=== PATIENT | female | born 1970 | race Two or more races ===

== ENCOUNTER 2020-06-05 21:33 | Emergency (ER) | payer MEDICAID ==
[~2020-06-05] VITALS: Ht 162.6 cm; Wt 68.2 kg
[2020-06-05] MEDS ORDERED: METOCLOPRAMIDE 5 MG/ML, 2ML IVPush ONE (22:00)
[2020-06-05] MEDS ORDERED: SODIUM CHLORIDE 0.9% 1,000ML IVBOLUS ONE (22:00)
--- NOTE | 2020-06-05 22:00 | NUR ---
patient bib remsa for lower abdominal pain. 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 patient states "i havent left my tub for days because I cant stop throwing up". patient in position in bed, restless, crying. tachycardic and hypertensive on monitors. she has been unable to take her medication due to the vomiting. IV in place on arrival. Dr. Dan at bedside for assessment. Call anna in place. patient in hospital gown. attached to VS monitoring equipment. side rails up for safety
[2020-06-05] MEDS ORDERED: METOCLOPRAMIDE 5 MG/ML, 2ML ONE (22:05)
[2020-06-05 22:29] LABS: BASOPHILS % (AUTO) 0 % (0-1); EOSINOPHILS % (AUTO) 0 % (1-7); LYMPHOCYTES % (AUTO) 8 % (22-44); MEAN CORPUSCULAR HEMOGLOBIN 34.8 pg (27.0-34.8); MEAN CORPUSCULAR HGB CONC 34.6 g/dL (32.4-35.8); MEAN PLATELET VOLUME 8.5 fL (7.4-10.4); MONOCYTES % (AUTO) 2 % (2-9); NEUTROPHILS % (AUTO) 89 % (42-75); PLATELET COUNT 311 x10^3/uL (130-400); RED BLOOD COUNT 4.54 x10^6/uL (3.82-5.3)
[2020-06-05 22:44] LABS: ALANINE AMINOTRANSFERASE 55 U/L (12-78); ALBUMIN 4.5 g/dL (3.4-5.0); ANION GAP 10 mmol/L (5-15); CALCIUM 9.3 mg/dL (8.5-10.1); CHLORIDE 108 mmol/L (98-107); CREATININE 1.04 mg/dL (0.55-1.02)
[2020-06-05 22:46] LABS: ALKALINE PHOSPHATASE 100 U/L (45-117); BILIRUBIN,TOTAL 1.4 mg/dL (0.2-1.0); TOTAL PROTEIN 8.2 g/dL (6.4-8.2)
--- NOTE | 2020-06-05 22:49 | NUR ---
patient reports feeling better. resting in position with side rails up for safety
[2020-06-05 23:08] LABS: MD SCAN
--- NOTE | 2020-06-05 23:21 | NUR ---
patient remains to have no n/v at this time. patient reports "im burping a lot". calm and no longer restless in bed. ivf almost complete. will continue to monitor. HR remains tachycardic at this time. call anna in reach
--- NOTE | 2020-06-06 00:03 | NUR ---
patient ambulated to bathroom. steady gait. ua obtained and sent to lab. Dr. long approved ice chips for patient and these were provided. call anna in reach. safety maintained. patient reports pain is now a dull ache and better. denies nausea
[2020-06-06 00:06] LABS: HCG UR SG 1.015 (1.003-1.030); MICROSCOPIC NOT IND
[2020-06-06] MEDS ORDERED: SODIUM CHLORIDE 0.9% 1,000ML IVBOLUS ONE (00:30)
--- NOTE | 2020-06-06 00:47 | NUR ---
TASK RN: PT RESTING IN [facility], IVF CONTINUE TO INFUSE. DENIES NEEDS. POC IS DC S/P IVF.
--- NOTE | 2020-06-06 01:27 | NUR ---
discharge instructions reviewed with patient. no further questions. IV removed per dc protocol. steady gait to lobby. all personal belongings with patient on departure. denies n/v/d on discharge.
[2020-06-06 01:29] VITALS: BP 162/85
== END 2020-06-06 01:31 | disposition home or self-care (01) ==
LOC: ED 06-06 00:43
DX: R11.2 Nausea with vomiting, unspecified (principal); R10.84 Generalized abdominal pain; R19.7 Diarrhea, unspecified; I10 Essential (primary) hypertension
CPT/HCPCS: 36415; 80053; 81003; 81025; 83690; 85025; 96361; 96374; 99285; J2765; J7030; 99284